=== PATIENT | female | born 1965 | race Caucasian/White ===

== ENCOUNTER 2018-03-30 01:30 | Inpatient (IN) | payer MEDICAID ==
[~2018-03-30] VITALS: Ht 175.3 cm; Wt 168.7 kg
[2018-03-30 06:40] VITALS: BP 123/92
[2018-03-30] MEDS ORDERED: diltiazem-NS 100mg/100ml 100 ML IV SCH (06:45)
[2018-03-30] MEDS ORDERED: diltiazem-D5W 125mg/125ml 125 ML IV SCH (07:54)
[2018-03-30] MEDS: sotalol 80mg tablet PO SCH ×2 (09:34→21:01)
[2018-03-30] MEDS ORDERED: ipratropium/albuterol 3ml nebule NEB PRN (09:50)
[2018-03-30] MEDS ORDERED: magnesium Cl slow-release 64mg tablet PO PRN (09:50)
[2018-03-30] MEDS ORDERED: magnesium hydroxide 30ml (MOM) UD suspension PO PRN (09:50)
[2018-03-30] MEDS ORDERED: morphine 2 MG/ML inj. syringe IV PRN ×2 (09:50)
[2018-03-30] MEDS ORDERED: potassium Cl 40MEQ/NS 500ml 500 ML IV PRN ×2 (09:50)
[2018-03-30] MEDS ORDERED: magnesium 4gm in 100ml NS 100 ML IV PRN (09:50)
[2018-03-30] MEDS ORDERED: magnesium 1gm/100ml D5W IVPB 100 ML IV PRN (09:50)
[2018-03-30] MEDS ORDERED: ondansetron/PF 4mg/2ml inj IV PRN (09:50)
[2018-03-30] MEDS ORDERED: acetaminophen 325mg tablet PO PRN ×2 (09:50)
[2018-03-30] MEDS ORDERED: mag hydrox/Alum hydrox/simeth 30ml oral suspension PO PRN (09:50)
[2018-03-30] MEDS ORDERED: HYDROcodone/acetaminophen 5mg/325mg tablet PO PRN (09:50)
[2018-03-30] MEDS ORDERED: potassium Cl 20 mEq SR tablet PO PRN ×2 (09:50)
[2018-03-30] MEDS: CefTRIAXone 2gm/D5W 50ml 50 ML IV SCH (10:44)
[2018-03-30] MEDS: HYDROcodone/acetaminophen 10/325mg tab PO PRN (10:44)
[2018-03-30 11:00] VITALS: BP 124/88
[2018-03-30] MEDS ORDERED: GABA-532 PO (11:55)
[2018-03-30] MEDS ORDERED: DILT30TA5 PO (11:55)
[2018-03-30] MEDS ORDERED: POTA-82 PO (11:55)
[2018-03-30] MEDS ORDERED: LASIX IH (11:55)
[2018-03-30] MEDS ORDERED: FAMO-128 PO (11:55)
[2018-03-30] MEDS ORDERED: DOCU250C4 PO (11:55)
[2018-03-30] MEDS ORDERED: DILT120C62 PO (11:55)
[2018-03-30] MEDS ORDERED: LEVO100T PO (11:55)
[2018-03-30] MEDS ORDERED: ATOR20TA PO (11:55)
[2018-03-30] MEDS ORDERED: FLUT16SP2 BOTHNARES (11:55)
[2018-03-30] MEDS ORDERED: ZOL50T PO (11:56)
[2018-03-30] MEDS ORDERED: WARF-65 PO (12:01)
[2018-03-30] MEDS ORDERED: SOTA80TA PO (12:01)
[2018-03-30] MEDS ORDERED: TIZA4TAB11 PO (12:01)
[2018-03-30] MEDS ORDERED: WARF1TAB PO (12:01)
[2018-03-30] MEDS ORDERED: TRAZ-219 PO (12:01)
[2018-03-30] MEDS ORDERED: SERT100T PO (12:01)
[2018-03-30 15:00] VITALS: BP 141/69
[2018-03-30] MEDS ORDERED: tizanidine 4mg tablet PO PRN (16:30)
[2018-03-30] MEDS ORDERED: magnesium citrate 296ml oral solution PO ONE (16:40)
[2018-03-30] MEDS: DOXYCYCLINE 100MG CAPSULE PO SCH (17:07)
[2018-03-30] MEDS: levoTHYROXINE 100mcg tablet PO SCH (17:08)
[2018-03-30] MEDS: cyclobenzaprine 10mg tablet PO PRN (17:27)
[2018-03-30 17:48] LABS: INR 2.9 INR; PROTHROMBIN TIME 27.4 SECONDS (9.0-12.0)
[2018-03-30 19:00] VITALS: BP 131/86
[2018-03-30] MEDS: docusate sod 100mg capsule PO SCH (20:00)
[2018-03-30] MEDS: gabapentin 300mg capsule PO SCH (20:58)
[2018-03-30] MEDS: lactobacillus rhamnosus 10,000 MMU CELLS/CAPSULE PO SCH (20:59)
[2018-03-30] MEDS: atorvastatin 20mg tablet PO SCH (20:59)
[2018-03-30] MEDS: traZODone 50mg tablet PO SCH (21:00)
[2018-03-30] MEDS ORDERED: warfarin 3mg tablet PO ONE (21:00)
[2018-03-30] MEDS: furosemide 40mg/4ml inj IV SCH (21:00)
[2018-03-30] MEDS: polyethylene glycol 3350 17gm powd pack PO SCH (21:00)
[2018-03-30] MEDS ORDERED: warfarin 4mg tablet PO SCH (21:00)
[2018-03-30] MEDS ORDERED: diltiazem 30mg tablet PO SCH (21:00)
[2018-03-30 23:00] VITALS: BP 105/52
[2018-03-31 03:00] VITALS: BP 122/67
[2018-03-31 06:00] VITALS: BP 127/63
[2018-03-31 06:48] LABS: BASOPHILS % (AUTO) 0.1 % (0-1); EOSINOPHILS # (AUTO) 0.2 X10'3 (0-0.9); HEMATOCRIT 47.9 % (35.0-45.0); HEMOGLOBIN 15.6 g/dl (12.0-16.0); INR 2.9 INR; LYMPHOCYTES # (AUTO) 2.4 X10'3 (1.1-4.8); LYMPHOCYTES % (AUTO) 22.3 % (21-51); MEAN CORPUSCULAR HEMOGLOBIN 28.9 PG (27.0-31.0); MEAN CORPUSCULAR HGB CONC 32.6 % (33.0-36.5); MEAN CORPUSCULAR VOLUME 88.8 FL (78-98); MONOCYTES % (AUTO) 9.5 % (2-12); NEUTROPHILS # (AUTO) 7.1 X10'3 (1.8-7.7); NEUTROPHILS % (AUTO) 66.1 % (42-75); PLATELET COUNT 209 X10'3 (140-440); PROTHROMBIN TIME 28.1 SECONDS (9.0-12.0); RED BLOOD COUNT 5.39 X10'6 (4.20-5.60); RED CELL DISTRIBUTION WIDTH 16.1 % (11.5-14.5); WHITE BLOOD COUNT 10.8 X10'3 (4.5-11.0)
[2018-03-31 07:10] LABS: ALBUMIN 3.2 G/DL (3.4-5.0); ANION GAP 6 (8-16); BLOOD UREA NITROGEN 44 MG/DL (7-18); BUN/CREATININE RATIO 27.7 (6.6-38.0); CALCIUM 8.4 MG/DL (8.5-10.1); CHLORIDE 102 MMOL/L (99-107); CREATININE 1.59 MG/DL (0.40-0.90); GLUCOSE 109 MG/DL (70-104); MAGNESIUM 3.2 MG/DL (1.5-2.4); POTASSIUM 4.3 MMOL/L (3.5-5.1); SODIUM 143 MMOL/L (135-145); TOTAL CARBON DIOXIDE 34.8 MMOL/L (24-32); eGFR 34 ML/MIN
[2018-03-31] MEDS: K and/or MAG REPLACEMENT MC SCH (08:00)
[2018-03-31] MEDS ORDERED: sertraline 50mg tablet PO SCH (08:00)
[2018-03-31] MEDS: cyclobenzaprine 10mg tablet PO PRN ×2 (08:15→17:32)
[2018-03-31] MEDS: sertraline 50mg tablet PO SCH (08:15)
[2018-03-31] MEDS: famotidine 20mg tablet PO SCH (08:16)
[2018-03-31] MEDS: HYDROcodone/acetaminophen 10/325mg tab PO PRN ×3 (08:16→17:33)
[2018-03-31] MEDS: DOXYCYCLINE 100MG CAPSULE PO SCH ×2 (08:16→17:33)
[2018-03-31] MEDS: lactobacillus rhamnosus 10,000 MMU CELLS/CAPSULE PO SCH ×2 (08:17→20:51)
[2018-03-31] MEDS: levoTHYROXINE 100mcg tablet PO SCH (08:17)
[2018-03-31] MEDS: gabapentin 300mg capsule PO SCH ×3 (08:17→20:52)
[2018-03-31] MEDS: docusate sod 100mg capsule PO SCH ×2 (08:17→20:51)
[2018-03-31] MEDS: potassium Cl 20 mEq SR tablet PO SCH (08:18)
[2018-03-31] MEDS: furosemide 40mg/4ml inj IV SCH (08:18)
[2018-03-31] MEDS: CefTRIAXone 2gm/D5W 50ml 50 ML IV SCH (08:19)
[2018-03-31] MEDS: fluticasone nasal spray 16GM bottle NS SCH (08:19)
[2018-03-31 11:00] VITALS: BP 119/64
[2018-03-31 15:00] VITALS: BP 128/63
[2018-03-31 19:00] VITALS: BP 133/62
[2018-03-31] MEDS: sotalol 80mg tablet PO SCH (20:00)
[2018-03-31] MEDS: traZODone 50mg tablet PO SCH (20:52)
[2018-03-31] MEDS: polyethylene glycol 3350 17gm powd pack PO SCH (20:53)
[2018-03-31] MEDS: atorvastatin 20mg tablet PO SCH (20:53)
[2018-03-31] MEDS ORDERED: warfarin 3mg tablet PO ONE (21:00)
[2018-03-31] MEDS ORDERED: warfarin 3mg tablet PO SCH (21:00)
[2018-03-31 23:00] VITALS: BP 130/64
[2018-04-01 03:00] VITALS: BP 117/70
[2018-04-01] MEDS: HYDROcodone/acetaminophen 10/325mg tab PO PRN (06:32)
[2018-04-01 07:00] VITALS: BP 125/79
[2018-04-01 07:21] LABS: BASOPHILS % (AUTO) 0.2 % (0-1); EOSINOPHILS # (AUTO) 0.3 X10'3 (0-0.9); EOSINOPHILS % (AUTO) 3.3 % (0-6); HEMATOCRIT 45.7 % (35.0-45.0); HEMOGLOBIN 14.8 g/dl (12.0-16.0); LYMPHOCYTES # (AUTO) 2.3 X10'3 (1.1-4.8); LYMPHOCYTES % (AUTO) 23.8 % (21-51); MEAN CORPUSCULAR HEMOGLOBIN 28.7 PG (27.0-31.0); MEAN CORPUSCULAR HGB CONC 32.4 % (33.0-36.5); MEAN CORPUSCULAR VOLUME 88.7 FL (78-98); MEAN PLATELET VOLUME 8.7 FL (7.4-10.4); MONOCYTES # (AUTO) 0.8 X10'3 (0-0.9); MONOCYTES % (AUTO) 8.7 % (2-12); NEUTROPHILS # (AUTO) 6.2 X10'3 (1.8-7.7); PLATELET COUNT 190 X10'3 (140-440); RED BLOOD COUNT 5.16 X10'6 (4.20-5.60); WHITE BLOOD COUNT 9.6 X10'3 (4.5-11.0)
[2018-04-01 07:37] LABS: ANION GAP 7 (8-16); BLOOD UREA NITROGEN 38 MG/DL (7-18); BUN/CREATININE RATIO 26.4 (6.6-38.0); CALCIUM 8.3 MG/DL (8.5-10.1); CHLORIDE 101 MMOL/L (99-107); CREATININE 1.44 MG/DL (0.40-0.90); GLUCOSE 117 MG/DL (70-104); INR 2.7 INR; MAGNESIUM 2.9 MG/DL (1.5-2.4); POTASSIUM 3.8 MMOL/L (3.5-5.1); PROTHROMBIN TIME 26.3 SECONDS (9.0-12.0); SODIUM 139 MMOL/L (135-145); eGFR 38 ML/MIN
[2018-04-01] MEDS: sotalol 80mg tablet PO SCH ×2 (08:00→12:26)
[2018-04-01] MEDS ORDERED: furosemide 40mg/4ml inj IV SCH (08:00)
[2018-04-01] MEDS: K and/or MAG REPLACEMENT MC SCH (08:00)
[2018-04-01] MEDS: famotidine 20mg tablet PO SCH (08:22)
[2018-04-01] MEDS: sertraline 50mg tablet PO SCH (08:22)
[2018-04-01] MEDS: levoTHYROXINE 100mcg tablet PO SCH (08:22)
[2018-04-01] MEDS: docusate sod 100mg capsule PO SCH (08:24)
[2018-04-01] MEDS: gabapentin 300mg capsule PO SCH ×2 (08:24→12:26)
[2018-04-01] MEDS: fluticasone nasal spray 16GM bottle NS SCH (08:24)
[2018-04-01] MEDS: lactobacillus rhamnosus 10,000 MMU CELLS/CAPSULE PO SCH (08:24)
[2018-04-01] MEDS: potassium Cl 20 mEq SR tablet PO SCH (08:24)
[2018-04-01] MEDS: cefpodoxime proxetil 100mg tablet PO SCH ×2 (08:26→19:01)
[2018-04-01 08:31] VITALS: BP 118/47
[2018-04-01 11:00] VITALS: BP 128/66
[2018-04-01] MEDS ORDERED: CEFP100T7 PO (12:21)
[2018-04-01] MEDS ORDERED: SOTA80TA73 PO (12:21)
[2018-04-01 15:00] VITALS: BP 139/67
[2018-04-01 19:00] VITALS: BP 127/59
[2018-04-01] MEDS ORDERED: warfarin 4mg tablet PO ONE (21:00)
== END 2018-04-01 19:50 | disposition home or self-care (01) | DRG 201 ==
LOC: PCU 3S 01:30
PROVIDERS: ADMIT Family Medicine; ATTEND Internal Medicine
PROC: 5A09357 Assistance with Respiratory Ventilation, Less than 24 Consecutive Hours, Continuous Positive Airway Pressure (ICD-10-PCS; principal; 2018-03-30)
PROC: 5A09357 Assistance with Respiratory Ventilation, Less than 24 Consecutive Hours, Continuous Positive Airway Pressure (ICD-10-PCS; 2018-04-01)
DX: I48.0 Paroxysmal atrial fibrillation (principal); J96.01 Acute respiratory failure with hypoxia; I50.33 Acute on chronic diastolic (congestive) heart failure; J18.9 Pneumonia, unspecified organism; I13.0 Hypertensive heart and chronic kidney disease with heart failure and stage 1 through stage 4 chronic kidney disease, or unspecified chronic kidney disease; N18.3 Chronic kidney disease, stage 3 (moderate); E66.01 Morbid (severe) obesity due to excess calories; E03.9 Hypothyroidism, unspecified; J20.9 Acute bronchitis, unspecified; G47.33 Obstructive sleep apnea (adult) (pediatric); G89.29 Other chronic pain; N39.0 Urinary tract infection, site not specified; Z79.01 Long term (current) use of anticoagulants; Z82.3 Family history of stroke; Z82.49 Family history of ischemic heart disease and other diseases of the circulatory system; Z87.891 Personal history of nicotine dependence; Z68.43 Body mass index [BMI] 50.0-59.9, adult; Z88.2 Allergy status to sulfonamides; Z88.8 Allergy status to other drugs, medicaments and biological substances; Z79.899 Other long term (current) drug therapy; Z98.51 Tubal ligation status
CPT/HCPCS: 36415; 80048; 83735; 83880; 84443; 85025; 85610; 87070; 93005; 94660; 94760; 97116; 97162; 97530; G0378; J0696; J1940; J3490